=== PATIENT | female | born 1995 | race American Indian/Alaskan Native ===

== ENCOUNTER 2016-11-18 09:46 | Emergency (ER) | payer SELFPAY ==
[2016-11-18 10:15] VITALS: BP 124/74
[2016-11-18] MEDS ORDERED: NACL 0.9% 1000 ML 1,000 ML IV ONE (11:49)
[2016-11-18] MEDS ORDERED: ZOFRAN IV ONE (11:49)
[2016-11-18 12:38] LABS: Anion Gap 22 mmol/L; BUN/Creatinine Ratio 18.33; Blood Urea Nitrogen 11 mg/dL (7-17); Calcium 9.6 mg/dL (8.4-10.2); Carbon Dioxide 20 mmol/L (22-30); Chloride 103.5 mmol/L (98-107); Glucose 135 mg/dL (65-100); Potassium 4.2 mmol/L (3.6-5.0); Sodium 141 mmol/L (137-145)
[2016-11-18] MEDS ORDERED: TORADOL IV ONE (13:29)
[2016-11-18 13:35] LABS: Hemoglobin 11.7 gm/dl (10.1-14.3); Mean Corpuscular HGB Conc 33 % (30-34); Mean Corpuscular Hemoglobin 32 pg (28-32); Mean Corpuscular Volume 98 fl (79-97); Platelet Count 216 K/mm3 (140-440); Red Blood Count 3.67 M/mm3 (3.65-5.03); Red Cell Distribution Width 11.8 % (13.2-15.2); White Blood Count 14.2 K/mm3 (4.5-11.0)
--- NOTE | 2016-11-18 14:22 | Emergency Department Report ---
Entered by HARPREET WERNER, acting as scribe for ALY EDWARD PA. ED Female HPI - General Chief complaint: Abdominal Pain Stated complaint: ABD PAIN Time Seen by Provider: 11/18/16 11:13 Source: patient Mode of arrival: Ambulatory Limitations: No Limitations - History of Present Illness Initial comments: 21 y/o female presents c/o urogenital problem after taking three 50mg Tramadol tablets earlier today. Pt took the tablets to relieve the menstrual cramps that occur regularly with her menstrual cycle. N/V, chills, shaking began shortly after the Tramadol was taken. Pt denies fever/chills/chest pain/shortness of breath/abdominal pain dizziness or blurry vision. No additional Sx. she states she has never taken tramadol before this was a first time. MD Complaint: other (menstrual cramps) -: This morning Radiation: non-radiating Severity: mild Quality: aching Consistency: constant Improves with: none Worsens with: none Are you Now?: No Last Menstrual Period: 11/18/16 (currently on menstrual cycle) EDC: 08/25/17 Associated Symptoms: abdominal pain, nausea/vomiting, other (shaking) - Related Data Previous Rx's Medication Instructions Recorded Last Taken Type Ibuprofen [Motrin 800 MG tab] 800 mg PO Q8HR PRN #30 tablet 11/18/16 Unknown Rx Ondansetron [Zofran Odt] 4 mg PO Q8H #20 tab.rapdis 11/18/16 Unknown Rx Allergies Allergy/AdvReac Type Severity Reaction Status Date / Time No Known Allergies Allergy Unverified 11/18/16 10:04 ED Review of Systems Comment: All other systems reviewed and negative Eyes: denies: vision change Gastrointestinal: abdominal pain, nausea, vomiting Genitourinary: other (menstrual cramps) Neurological: headache, other ("shaking" but pt denies dizziness) ED Past Medical Hx - Past Medical History Previous Medical History?: No - Surgical History Past Surgical History?: No - Social History Smoking Status: Never Smoker Substance Use Type: None - Medications Home Medications: Home Medications Medication Instructions Recorded Confirmed Last Taken Type Ibuprofen [Motrin 800 MG tab] 800 mg PO Q8HR PRN #30 tablet 11/18/16 Unknown Rx Ondansetron [Zofran Odt] 4 mg PO Q8H #20 tab.rapdis 11/18/16 Unknown Rx ED Physical Exam - General Limitations: No Limitations - Other Other exam information: GENERAL: Patient is alert and oriented x 3. No apparent distress, normal gait, atraumatic. HEAD: Head is normocephalic and atraumatic. EYES: Extraocular movements are intact. NECK: Supple. Non edematous, no carotid bruits. No lymphadenopathy or thyromegaly. LUNGS: Symmetrical with respiration. No wheezing, rales or crackles, CTAB. HEART: Regular rate and rhythm with normal S1/S2 present. No murmurs, rubs, or gallops. ABDOMEN: Soft, nondistended. Nontender to palpation on all quadrants. No organomegaly was noted. Positive bowel sounds. No CVA tenderness. EXTREMITIES/MUSCULOSKELETAL: No cyanosis, clubbing, rash, lesions or edema. Full ROM bilaterally. UE/LE Pulses 2+ bilaterally. LE and UE 5+ strength bilaterally SKIN: Warm and dry. No lesions, ulceration or induration present NEUROLOGIC: No focal deficit. ED Course Vital Signs 11/18/16 10:04 Temperature 97.6 F Pulse Rate 88 Respiratory 18 Rate Blood Pressure 124/74 O2 Sat by Pulse 100 Oximetry ED Medical Decision Making - Lab Data Result diagrams: 11/18/16 12:12 - Medical Decision Making Discussed with patient to follow up with PCP as referred, and to return to the ED if her symptoms return or worsen. Patient states understanding and will follow instructions. Vital signs stable, patient is in no acute distress. ED Disposition Clinical Impression: Menstrual cramp Disposition: DISCHARGED TO HOME OR SELFCARE Is pt being admited?: No Does the pt Need Aspirin: No Condition: Stable Instructions: Abdominal Pain (ED), Menstruation (ED), Tramadol (By mouth) Additional Instructions: Take your Medication as prescribed. Do not take medication that you do not know. Do not take another persons medication. Always take medication prescribed. Always discussed with the clinician before taking any medication. Prescriptions: Ibuprofen [Motrin 800 MG tab] 800 mg PO Q8HR PRN #30 tablet PRN Reason: Pain Ondansetron [Zofran Odt] 4 mg PO Q8H #20 tab.rapdis Referrals: PRIMARY MD SHARLA [Primary Care Provider] - 3-5 Days ANNIE CROSS MD [Referring] - 3-5 Days [facility] [Outside] - 3-5 Days [facility] [Outside] - 3-5 Days Forms: Accompanied Note, Work/School Release Form(ED) Time of Disposition: 13:14 This documentation as recorded by the DEBBI cox RYAN,accurately reflects the service I personally performed and the decisions made by ,ALY EDWARD PA.
== END 2016-11-18 13:55 | disposition home or self-care (01) ==
LOC: ED 09:46
DX: N94.6 Dysmenorrhea, unspecified (principal)
CPT/HCPCS: 36415; 80048; 85027; 96361; 96374; 96375; 99283; J1885; J2405; J7030